=== PATIENT | female | born 1975 | race Two or more races ===

== ENCOUNTER 2017-09-29 09:21 | Emergency (ER) | payer OTHER ==
[~2017-09-29] VITALS: Ht 157.5 cm; Wt 61.2 kg
[~2017-09-29 09:21] MED LIST: GILTUSS TR TAB1 EACH PO; ZYRTEC10 MG PO
== END 2017-09-29 12:31 | disposition home or self-care (01) ==
LOC: ER 09:21
DX: S92.425A Nondisplaced fracture of distal phalanx of left great toe, initial encounter for closed fracture (principal); W22.8XXA Striking against or struck by other objects, initial encounter; Y93.89 Activity, other specified; Y92.89 Other specified places as the place of occurrence of the external cause; Y99.8 Other external cause status

== ENCOUNTER 2018-08-08 17:53 | Emergency (ER) | payer OTHER ==
[~2018-08-08] VITALS: Ht 157.5 cm; Wt 59.4 kg
[2018-08-08] MEDS ORDERED: [UNRECOGNIZED DRUG - OTHER] (18:31)
== END 2018-08-08 21:06 | disposition home or self-care (01) ==
LOC: ER 17:53
DX: R53.1 Weakness (principal)

== ENCOUNTER → 2018-08-11 | Emergency (ER) | payer OTHER ==
[~2018-08-11] VITALS: Ht 157.5 cm; Wt 59.9 kg
[~2018-08-11] MED LIST changes: +OSEL75CA PO; +[UNRECOGNIZED DRUG - OTHER]
== END | disposition home or self-care (01) ==
LOC: ER 21:52
DX: J11.1 Influenza due to unidentified influenza virus with other respiratory manifestations (principal); R50.9 Fever, unspecified

== ENCOUNTER 2019-03-10 21:42 | Inpatient (IN) | payer OTHER ==
[~2019-03-10] VITALS: Ht 157.5 cm; Wt 63.5 kg
[2019-03-10] MEDS ORDERED: ABATINEX680 MG PO (21:51)
[2019-03-10] MEDS ORDERED: CEFUROXIME500 MG PO (21:52)
[2019-03-11] MEDS ORDERED: NEURONTIN600 M1 PO (10:04)
[2019-03-11] MEDS ORDERED: PERCOCET 5-3251 EACH PO (10:04)
== END 2019-03-11 14:00 | disposition home or self-care (01) | DRG 419 ==
LOC: ER 21:42 → O/R 23:11 → SEC-K 23:11 → O/R 03-11 07:44
PROVIDERS: ADMIT Surgery
PROC: 0FT44ZZ Resection of Gallbladder, Percutaneous Endoscopic Approach (ICD-10-PCS; principal; 2019-03-10)
PROC: BF10YZZ Fluoroscopy of Bile Ducts using Other Contrast (ICD-10-PCS; 2019-03-10)
DX: K80.01 Calculus of gallbladder with acute cholecystitis with obstruction (principal); R10.11 Right upper quadrant pain

== ENCOUNTER 2019-09-07 13:27 | Outpatient (CLI) | payer OTHER ==
[~2019-09-07 13:27] MED LIST changes: +ABATINEX680 MG PO; +CEFUROXIME500 MG PO; +NEURONTIN600 M1 PO; +PERCOCET 5-3251 EACH PO
== END 2019-09-07 13:36 | disposition home or self-care (01) ==
LOC: RAD 13:27
DX: M19.049 Primary osteoarthritis, unspecified hand (principal); M79.641 Pain in right hand; M79.642 Pain in left hand; R05 Cough